=== PATIENT | female | born 1940 | race Hispanic/Latino ===

== ENCOUNTER 2017-03-14 12:40 | Emergency (ER) | payer MEDICARE ==
[~2017-03-14] VITALS: Ht 160 cm; Wt 54.4 kg
[~2017-03-14 12:40] MED LIST: COLACE100 MG PO; DIFLUCAN100 MG PO; HUMALOG MI100 UNIT/2 SQ; LEVOFLOXACIN250 MG PO; METFORMIN HCL500 MG PO; SIMVASTATIN20 MG PO; TYLENOL WITH C1 EACH PO; VASOTEC10 MG PO; ZOFRAN ODT4 MG SL
[2017-03-14 14:04] LABS: BILIRUBIN,URINE NEGATIVE (NEGATIVE); KETONES,URINE NEGATIVE (NEGATIVE); LEUKOCYTE ESTERASE ,URINE 2+ (NEGATIVE); URINE UROBILINOGEN 0.2 mg/dL (0.2 - 1)
[2017-03-14 14:08] LABS: NITRITE,URINE POSITIVE (NEGATIVE)
[2017-03-14 14:09] LABS: CLARITY,URINE SL CLOUDY (CLEAR); COLOR,URINE YELLOW (YELLOW); PROTEIN,URINE DIPSTICK TRACE (NEGATIVE)
[2017-03-14 14:30] LABS: BACTERIA,URINE MANY /HPF; EPITHELIAL CELLS,URINE FEW /LPF; RBC,URINE 0-5 /HPF (0-5)
--- NOTE | 2017-03-14 15:55 | Diagnostic Imaging Report ---
PROCEDURE: CT ABDOMEN AND PELVIS WITHOUT CONTRAST TECHNIQUE: The abdomen and pelvis were scanned utilizing a multidetector helical scanner from the diaphragm to the lesser. No IV contrast. Coronal and sagittal multiplanar reformations were obtained. COMPARISON: None. INDICATIONS: RIGHT FLANK PAIN FINDINGS: ABSENCE OF INTRAVENOUS CONTRAST DECREASES SENSITIVITY FOR DETECTION OF FOCAL LESIONS AND VASCULAR PATHOLOGY. LOWER THORAX: Subpleural scarring in the lateral left lower lobe and right lung base. HEPATOBILIARY: No focal hepatic lesions. There is stable prominence of the common bile duct which measures 7 mm. SPLEEN: No splenomegaly. PANCREAS: No focal masses or ductal dilatation. ADRENALS: No adrenal nodules. KIDNEYS/URETERS: There is a right nephroureteral stent with its proximal tip in the right renal pelvis and its distal tip in the bladder. There is moderate chronic right hydronephrosis which has decreased since the prior examination on 06/17/2014. No renal or ureteral stones. Within the limits of a noncontrast examination, no solid masses are identified. PELVIC ORGANS/BLADDER: Unremarkable. PERITONEUM / RETROPERITONEUM: No free air or fluid. LYMPH NODES: No lymphadenopathy. VESSELS: Severe atherosclerotic calcifications of the aorta and its branches. GI TRACT: No distention or wall thickening. A 3.6 cm diverticulum arising from the second or third portion of the duodenum is unchanged. BONES AND SOFT TISSUES: Multilevel degenerative changes of the thoracic and lumbar spine. Severe facet arthrosis of the lower lumbar spine. IMPRESSION: When compared to the prior examination on 06/17/2014, unchanged position of the right nephroureteral stent. There is right hydronephrosis which has decreased since the prior examination. No renal or ureteral stones on either side. Dictated by: Elmer Campoverde M.D. on 03/14/2017 at 16:04 Electronically approved by: Elmer Campoverde M.D. on 03/14/2017 at 16:04
== END 2017-03-14 18:31 | disposition left against medical advice (07) ==
LOC: ER 12:40
DX: R50.9 Fever, unspecified (principal); R10.9 Unspecified abdominal pain; I10 Essential (primary) hypertension; E11.9 Type 2 diabetes mellitus without complications; E78.5 Hyperlipidemia, unspecified
CPT/HCPCS: 74176; 81001; 87086; 87186; 99282

== ENCOUNTER 2017-03-17 09:05 | Inpatient (IN) | payer MEDICARE ==
[~2017-03-17] VITALS: Ht 160 cm; Wt 51.5 kg
[2017-03-17] MEDS ORDERED: SODIUM CHLORIDE 0.9% 1000ML 1,000 ML IV STA (09:18)
[2017-03-17] MEDS ORDERED: CEPHALEXIN500 MG PO (09:26)
[2017-03-17] MEDS ORDERED: ULTRAM50 MG PO (09:26)
[2017-03-17] MEDS ORDERED: GABAPENTIN100 MG PO (09:26)
[2017-03-17 10:39] LABS: BILIRUBIN,URINE NEGATIVE (NEGATIVE); KETONES,URINE NEGATIVE (NEGATIVE); LEUKOCYTE ESTERASE ,URINE 1+ (NEGATIVE); NITRITE,URINE NEGATIVE (NEGATIVE); PROTEIN,URINE DIPSTICK NEGATIVE (NEGATIVE); URINE UROBILINOGEN 0.2 mg/dL (0.2 - 1)
[2017-03-17 10:44] LABS: COLOR,URINE COLORLESS (YELLOW)
[2017-03-17 10:45] LABS: CLARITY,URINE HAZY (CLEAR)
[2017-03-17 10:53] LABS: BACTERIA,URINE FEW /HPF; EPITHELIAL CELLS,URINE FEW /LPF; TRANSITIONAL EPI CELLS,URINE RARE
[2017-03-17 11:16] LABS: BASOPHILS # (AUTO) 0.1 (0.0-0.1); BASOPHILS % 0.5 % (0.0-1.0); EOSINOPHILS % 0.4 % (0.0-6.0); HEMATOCRIT 37.2 % (34.2-44.1); LYMPHOCYTES % 19.8 % (18.0-39.1); MEAN CORPUSCULAR HEMOGLOBIN 31.5 pg (28-32); MEAN CORPUSCULAR HGB CONC 32.3 g/dL (31-35); MEAN CORPUSCULAR VOLUME 97.6 fL (81-99); MONOCYTES # (AUTO) 0.4 (0.2-0.8); MONOCYTES % 4.3 % (4.4-11.3); NEUTROPHILS # (AUTO) 7.6 (2.1-6.9); NEUTROPHILS % 74.6 % (38.7-80.0); PLATELET COUNT 188 x10e3/uL (140-360); RED BLOOD COUNT 3.81 x10e6/uL (3.6-5.1); RED CELL DISTRIBUTION WIDTH 13.4 % (11.7-14.4)
[2017-03-17 11:30] LABS: ALANINE AMINOTRANSFERASE 11 IU/L (0-55); ALBUMIN 3.4 g/dL (3.5-5.0); ALBUMIN/GLOBULIN RATIO 0.9 (0.8-2.0); ALKALINE PHOSPHATASE 59 IU/L (40-150); ANION GAP 9.9 mmol/L (8-16); BLOOD UREA NITROGEN 15 mg/dL (7-26); BUN/CREATININE RATIO 22 (6-25); CALCIUM 9.2 mg/dL (8.4-10.2); CARBON DIOXIDE 25 mmol/L (22-29); CHLORIDE 106 mmol/L (98-107); CREATININE, SERUM 0.68 mg/dL (0.57-1.11); EST GLOMERULAR FILTRATION RATE > 60 ML/MIN (60-); GLUCOSE 164 mg/dL (74-118); LIPASE 237 U/L (8-78); POTASSIUM 3.9 mmol/L (3.5-5.1); SODIUM 137 mmol/L (136-145)
[2017-03-17] MEDS ORDERED: MEROPENEM 1GM 100 ML IV SCH (11:45)
[2017-03-17] MEDS ORDERED: ONDANSETRON HCL INJ 2 MG/ML VIAL IV PRN (11:45)
[2017-03-17] MEDS ORDERED: DEXTROSE 50% SYRINGE 50 ML IV PRN (11:45)
[2017-03-17] MEDS ORDERED: MORPHINE SULFATE 2 MG/ML SYR IV PRN (11:45)
[2017-03-17] MEDS ORDERED: SODIUM CHLORIDE FLUSH 10 ML SYR INJ PRN (11:45)
[2017-03-17] MEDS ORDERED: MORPHINE SULFATE 4 MG/ML SYR IV PRN (12:00)
[2017-03-17] MEDS ORDERED: MEROPENEM 1 GM VIAL IV SCH (12:00)
[2017-03-17] MEDS ORDERED: SODIUM CHLORIDE 0.9% 1000ML 1,000 ML ONE (12:50)
[2017-03-17] MEDS ORDERED: SODIUM CHLORIDE 0.9% 50ML 50 ML ONE (12:50)
[2017-03-17] MEDS: MEROPENEM 1 GM VIAL IV SCH ×2 (12:56→20:34)
[2017-03-17] MEDS ORDERED: ACETAMINOPHEN/CODEINE 300MG - 30MG TAB PO PRN (17:45)
[2017-03-17] MEDS: INSULIN REGULAR, HUMAN 100 UNIT/1 ML 3ML VIAL SQ SCH ×2 (18:41→21:47)
[2017-03-17] MEDS ORDERED: HYDRALAZINE HCL 20 MG/ML VIAL IV PRN (19:15)
[2017-03-17 20:24] VITALS: BP 147/65
--- NOTE | 2017-03-17 20:53 | History and Physical ---
PRIMARY CARE PROVIDER: Dr. Kevin Mcguire CHIEF COMPLAINT: Multidrug resistant UTI. HISTORY OF PRESENT ILLNESS: Ms. Patel is a 77-year-old lady with history of ureteral calculi and a ureteral stent that gets replaced every 2 to 3 months. She has been battling a urinary tract infection for the last 2 months on oral antibiotics as an outpatient. She has been failing therapy. Recent culture, according to infectious disease, showed multidrug resistant ESBL E. coli. Patient was admitted electively for IV Merrem. REVIEW OF SYSTEMS: She denies fever, chills or weight loss. She denies sinus congestion or sore throat. Denies chest pain or palpitations. She denies shortness of breath, wheezing or cough. She denies abdominal pain, nausea, vomiting or melena. She denies dysuria or flank pain. Denies rash or pruritus. She denies joint pain or swelling. She denies bleeding or bruising. She denies headache, vertigo or loss of consciousness. She denies depression, agitation, homicidal or suicidal ideation. PAST MEDICAL HISTORY: Significant for longstanding hypertension, type 2 diabetes, dementia, peripheral arterial disease and ureteral calculi. REGULAR MEDICATIONS: She has been on Keflex here recently and she takes tramadol as needed for pain. She is on insulin, Humalog 70/30 mix, 20 units at noon, 16 units at dinner time. She is on metformin 500 mg twice daily. Simvastatin 20 mg at bedtime. Gabapentin 100 mg at bedtime. Enalapril 10 mg daily. Colace 100 mg twice daily and Tylenol with codeine as needed for pain. PAST SURGICAL HISTORY: She has a history of hysterectomy, has had 2 bladder slings. She has had a cholecystectomy and she has had a ureteral stent and lithotripsy for kidney stones. ALLERGIES: NO KNOWN DRUG ALLERGIES. FAMILY HISTORY: Significant for hypertension and diabetes. SOCIAL HISTORY: The patient lives at home with her daughter who takes care of her. Due to her dementia, she requires quite a bit of supervision and assistance with activities of daily living. PHYSICAL EXAM: PSYCHIATRIC: Awake and alert, oriented to herself, a little bit confused. She has a normal body habitus. Is in no acute distress. She is a little cachectic. Her BMI is 21.25. VITAL SIGNS: Blood pressure 147/63. Pulse 62 and regular. Respiratory rate 16. O2 sat 96% on room air. Temperature 97.9. HEENT: Head is atraumatic. Eyes are anicteric with clear conjunctivae. Ears and nares are without erythema or discharge. Oropharynx is clear. NECK: Is supple with no mass or thyromegaly. LYMPHATIC SYSTEM: She has no cervical, axillary or inguinal adenopathy. CARDIOVASCULAR: Heart has a regular rate and rhythm without murmur or extra heart sounds. She has no carotid bruits. No peripheral edema. She has very weak dorsal pedal pulses. RESPIRATORY: Lungs are clear to auscultation and percussion with normal respiratory effort. GASTROINTESTINAL: Abdomen is soft without organomegaly, masses or tenderness. Normal bowel sounds present. CUTANEOUS: Her skin is warm and dry to touch with no rash or skin breakdown. MUSCULOSKELETAL: Her joints are in normal alignment without erythema or swelling. Has no calf tenderness. NEUROLOGIC: Exam is nonfocal with intact cranial nerves and no motor or sensory deficits. DIAGNOSTIC STUDIES: Her UA shows 11 to 20 red cells and 11 to 20 white cells. Her CBC shows a white count of 10.1 with 75% neutrophils and 20% lymphocytes. Hemoglobin 12.0, hematocrit 37.2 and platelet count of 188,000. Chemistry shows normal electrolytes. CO2 25. Creatinine 0.68. BUN 15 for a normal GFR. Glucose is 164. Calcium is 9.2. Transaminases, bilirubin and alkaline phos are normal and her lipase is slightly elevated at 237. IMPRESSION AND PLAN 1. Multi drug resistant urinary tract infection. The patient has been started on IV meropenem empirically. We are waiting on the urine culture. ID has been consulted. 2. Ureteral stent, may need to be replaced. Will consult urology who has been following the patient as an outpatient to address the stent. 3. Hypertension. Will continue her enalapril and p.r.n. IV hydralazine. 4. Type 2 diabetes. Will continue the metformin. Will add Januvia and sliding scale insulin. 5. Dementia. Will continue supportive care. 6. For prophylaxis, the patient will be on Pepcid for GI prophylaxis and Lovenox for DVT prophylaxis. Job#: [id number]
--- NOTE | 2017-03-17 21:20 | Consultation ---
DATE OF CONSULTATION: March 17, 2017 REASON FOR CONSULTATION: UTI. HISTORY OF PRESENT ILLNESS: This patient is a 77-year-old female who has history of recurrent UTIs, having urgency frequency. Urine culture was done recently and since she had multidrug resistant, patient took a few courses of oral antibiotic but failed. The patient finally came to the emergency room where she was admitted. The patient was seen in the emergency room. She is currently doing well. She has no complaints. PAST MEDICAL HISTORY: Hypertension, diabetes and UTI before. PAST SURGICAL HISTORY: Colpopexy. SOCIAL HISTORY: There is no smoking, drug abuse or alcohol abuse. FAMILY HISTORY: Otherwise unremarkable. REVIEW OF SYSTEMS: HEENT: Negative. There is no headache, visual changes or hearing changes. GI: No nausea, no vomiting and no diarrhea. CARDIAC: There is no arrhythmia. PSYCHIATRIC: No seizure activity. SKIN: No rash. PHYSICAL EXAMINATION: GENERAL: She is currently alert, oriented and does not seem to be in acute distress. VITALS: Stable, currently afebrile. HEENT: Not icteric. NECK: Supple. CHEST: Clear. COR: No murmur. ABDOMEN: Soft. Bowel sounds present. EXTREMITIES: No edema. SKIN: No rash. IMPRESSION: Urgency and frequency in a patient who probably has cystitis, multi-drug resistant. Will put her on meropenem 500 IV q.8, will plan on 3 days. Recheck CBC. Recheck chem panel. Recheck her urine cultures. Will follow with you. Job#: [id number]
[2017-03-17] MEDS: ENOXAPARIN SOD INJ 40 MG/0.4 ML SYR SC SCH (21:28)
[2017-03-17] MEDS: GABAPENTIN 100 MG CAP PO SCH (21:28)
[2017-03-17] MEDS: SIMVASTATIN 20 MG TAB PO SCH (21:28)
[2017-03-18 01:23] VITALS: BP 147/65
[2017-03-18 05:49] VITALS: BP 147/65
[2017-03-18 06:17] LABS: BASOPHILS % 0.6 % (0.0-1.0); EOSINOPHILS # (AUTO) 0.1 (0.0-0.4); HEMATOCRIT 36.1 % (34.2-44.1); HEMOGLOBIN 11.7 g/dL (12.0-16.0); LYMPHOCYTES # (AUTO) 2.4 (1.0-3.2); LYMPHOCYTES % 35.4 % (18.0-39.1); MEAN CORPUSCULAR HEMOGLOBIN 31.5 pg (28-32); MEAN CORPUSCULAR HGB CONC 32.4 g/dL (31-35); MONOCYTES # (AUTO) 0.6 (0.2-0.8); MONOCYTES % 8.1 % (4.4-11.3); NEUTROPHILS # (AUTO) 3.7 (2.1-6.9); NEUTROPHILS % 53.6 % (38.7-80.0); PLATELET COUNT 177 x10e3/uL (140-360); RED BLOOD COUNT 3.72 x10e6/uL (3.6-5.1); RED CELL DISTRIBUTION WIDTH 13.3 % (11.7-14.4)
[2017-03-18 06:37] LABS: ANION GAP 10.8 mmol/L (8-16); BLOOD UREA NITROGEN 17 mg/dL (7-26); BUN/CREATININE RATIO 26 (6-25); CALCIUM 8.5 mg/dL (8.4-10.2); CARBON DIOXIDE 24 mmol/L (22-29); CHLORIDE 108 mmol/L (98-107); CREATININE, SERUM 0.66 mg/dL (0.57-1.11); EST GLOMERULAR FILTRATION RATE > 60 ML/MIN (60-); GLUCOSE 158 mg/dL (74-118); POTASSIUM 3.8 mmol/L (3.5-5.1); SODIUM 139 mmol/L (136-145)
[2017-03-18 06:59] LABS: THYROID STIMULATING HORMONE 2.692 uIU/mL (0.350-4.940)
[2017-03-18 08:00] VITALS: BP 118/58
[2017-03-18] MEDS: INSULIN REGULAR, HUMAN 100 UNIT/1 ML 3ML VIAL SQ SCH ×4 (08:00→20:33)
[2017-03-18] MEDS: FAMOTIDINE 20 MG TAB PO SCH ×2 (08:30→17:06)
[2017-03-18] MEDS: METFORMIN HCL 500 MG TAB PO SCH ×2 (09:00→17:06)
[2017-03-18] MEDS: DOCUSATE SODIUM 100 MG CAP PO SCH ×2 (09:24→17:06)
[2017-03-18] MEDS: SITAGLIPTIN 100 MG TAB PO SCH (09:24)
[2017-03-18] MEDS: ENALAPRIL MALEATE 10 MG TAB PO SCH (09:24)
[2017-03-18 12:00] VITALS: BP 148/67
[2017-03-18] MEDS: MEROPENEM 1 GM VIAL IV SCH (12:17)
[2017-03-18 16:00] VITALS: BP 113/56
[2017-03-18] MEDS: ENOXAPARIN SOD INJ 40 MG/0.4 ML SYR SC SCH (17:06)
[2017-03-18 20:00] VITALS: BP_SYST 118; BP_SYST 121; BP_DIAS 56; BP_DIAS 58
[2017-03-18] MEDS: SIMVASTATIN 20 MG TAB PO SCH (21:00)
[2017-03-18] MEDS: GABAPENTIN 100 MG CAP PO SCH (21:00)
[2017-03-19] VITALS (8 sets, daily range): BP systolic 104–143; BP diastolic 54–64
[2017-03-19 06:21] LABS: BASOPHILS % 0.6 % (0.0-1.0); EOSINOPHILS # (AUTO) 0.1 (0.0-0.4); EOSINOPHILS % 1.9 % (0.0-6.0); HEMOGLOBIN 12.4 g/dL (12.0-16.0); LYMPHOCYTES # (AUTO) 2.3 (1.0-3.2); LYMPHOCYTES % 33.6 % (18.0-39.1); MEAN CORPUSCULAR HEMOGLOBIN 31.6 pg (28-32); MEAN CORPUSCULAR HGB CONC 32.6 g/dL (31-35); MEAN CORPUSCULAR VOLUME 96.9 fL (81-99); MONOCYTES # (AUTO) 0.5 (0.2-0.8); NEUTROPHILS # (AUTO) 3.9 (2.1-6.9); NEUTROPHILS % 56.6 % (38.7-80.0); PLATELET COUNT 192 x10e3/uL (140-360); RED BLOOD COUNT 3.92 x10e6/uL (3.6-5.1); RED CELL DISTRIBUTION WIDTH 13.5 % (11.7-14.4)
[2017-03-19 06:51] LABS: BLOOD UREA NITROGEN 22 mg/dL (7-26); BUN/CREATININE RATIO 30 (6-25); CALCIUM 8.7 mg/dL (8.4-10.2); CARBON DIOXIDE 24 mmol/L (22-29); CHLORIDE 108 mmol/L (98-107); CREATININE, SERUM 0.74 mg/dL (0.57-1.11); EST GLOMERULAR FILTRATION RATE > 60 ML/MIN (60-); GLUCOSE 162 mg/dL (74-118); SODIUM 141 mmol/L (136-145)
[2017-03-19] MEDS: FAMOTIDINE 20 MG TAB PO SCH ×2 (08:49→16:47)
[2017-03-19] MEDS: DOCUSATE SODIUM 100 MG CAP PO SCH ×2 (08:49→16:47)
[2017-03-19] MEDS: METFORMIN HCL 500 MG TAB PO SCH ×2 (08:49→16:47)
[2017-03-19] MEDS: SITAGLIPTIN 100 MG TAB PO SCH (08:49)
[2017-03-19] MEDS: ENALAPRIL MALEATE 10 MG TAB PO SCH (08:50)
[2017-03-19] MEDS: INSULIN REGULAR, HUMAN 100 UNIT/1 ML 3ML VIAL SQ SCH ×4 (08:53→21:34)
[2017-03-19] MEDS: MEROPENEM 1 GM VIAL IV SCH ×3 (12:23→23:03)
[2017-03-19] MEDS: ENOXAPARIN SOD INJ 40 MG/0.4 ML SYR SC SCH (16:47)
[2017-03-19] MEDS: SIMVASTATIN 20 MG TAB PO SCH (20:40)
[2017-03-19] MEDS: GABAPENTIN 100 MG CAP PO SCH (20:40)
[2017-03-20] VITALS (8 sets, daily range): BP systolic 119–159; BP diastolic 54–69
[2017-03-20 06:19] LABS: BASOPHILS % 0.5 % (0.0-1.0); EOSINOPHILS # (AUTO) 0.1 (0.0-0.4); EOSINOPHILS % 1.3 % (0.0-6.0); HEMATOCRIT 38.1 % (34.2-44.1); HEMOGLOBIN 12.6 g/dL (12.0-16.0); LYMPHOCYTES # (AUTO) 2.7 (1.0-3.2); MEAN CORPUSCULAR HEMOGLOBIN 31.7 pg (28-32); MEAN CORPUSCULAR HGB CONC 33.1 g/dL (31-35); MEAN CORPUSCULAR VOLUME 95.7 fL (81-99); MONOCYTES # (AUTO) 0.6 (0.2-0.8); MONOCYTES % 6.6 % (4.4-11.3); NEUTROPHILS # (AUTO) 5.3 (2.1-6.9); NEUTROPHILS % 60.3 % (38.7-80.0); PLATELET COUNT 178 x10e3/uL (140-360); RED BLOOD COUNT 3.98 x10e6/uL (3.6-5.1); RED CELL DISTRIBUTION WIDTH 13.3 % (11.7-14.4)
[2017-03-20 06:37] LABS: ANION GAP 13.1 mmol/L (8-16); BLOOD UREA NITROGEN 21 mg/dL (7-26); BUN/CREATININE RATIO 31 (6-25); CALCIUM 8.9 mg/dL (8.4-10.2); CARBON DIOXIDE 22 mmol/L (22-29); CHLORIDE 109 mmol/L (98-107); CREATININE, SERUM 0.67 mg/dL (0.57-1.11); EST GLOMERULAR FILTRATION RATE > 60 ML/MIN (60-); GLUCOSE 176 mg/dL (74-118); POTASSIUM 4.1 mmol/L (3.5-5.1); SODIUM 140 mmol/L (136-145)
[2017-03-20] MEDS: INSULIN REGULAR, HUMAN 100 UNIT/1 ML 3ML VIAL SQ SCH ×4 (07:30→20:50)
[2017-03-20] MEDS: SITAGLIPTIN 100 MG TAB PO SCH (09:06)
[2017-03-20] MEDS: DOCUSATE SODIUM 100 MG CAP PO SCH ×2 (09:06→17:00)
[2017-03-20] MEDS: FAMOTIDINE 20 MG TAB PO SCH ×2 (09:06→17:00)
[2017-03-20] MEDS: ENALAPRIL MALEATE 10 MG TAB PO SCH (09:06)
[2017-03-20] MEDS: METFORMIN HCL 500 MG TAB PO SCH ×2 (09:06→17:00)
[2017-03-20] MEDS: MEROPENEM 1 GM VIAL IV SCH ×2 (12:57→23:12)
[2017-03-20] MEDS: ENOXAPARIN SOD INJ 40 MG/0.4 ML SYR SC SCH (17:00)
--- NOTE | 2017-03-20 19:19 | Diagnostic Imaging Report ---
PROCEDURE: A single AP view of the chest. COMPARISON: None. INDICATIONS: PICC LINE PLACEMENT FINDINGS: Lines/tubes: Right PICC tip overlies the lower SVC. Lungs: The lungs are well inflated and clear. There is no evidence of pneumonia or pulmonary edema. Pleura: There is no pleural effusion or pneumothorax. Heart and mediastinum: The heart and the mediastinum are unremarkable. Bones: No acute bony abnormality. IMPRESSION: Right PICC tip overlies the lower SVC. Dictated by: Ez Garrido M.D. on 03/20/2017 at 19:28 Electronically approved by: Ez Garrido M.D. on 03/20/2017 at 19:28
[2017-03-20] MEDS: SIMVASTATIN 20 MG TAB PO SCH (21:01)
[2017-03-20] MEDS: GABAPENTIN 100 MG CAP PO SCH (21:01)
[2017-03-21] VITALS: BP 139/60
[2017-03-21 04:00] VITALS: BP 126/56
[2017-03-21 04:04] LABS: BASOPHILS # (AUTO) 0.1 (0.0-0.1); BASOPHILS % 0.6 % (0.0-1.0); EOSINOPHILS # (AUTO) 0.1 (0.0-0.4); EOSINOPHILS % 1.5 % (0.0-6.0); HEMOGLOBIN 12.6 g/dL (12.0-16.0); LYMPHOCYTES # (AUTO) 2.2 (1.0-3.2); LYMPHOCYTES % 24.9 % (18.0-39.1); MEAN CORPUSCULAR HEMOGLOBIN 31.8 pg (28-32); MEAN CORPUSCULAR HGB CONC 33.2 g/dL (31-35); MONOCYTES # (AUTO) 0.6 (0.2-0.8); MONOCYTES % 6.4 % (4.4-11.3); NEUTROPHILS # (AUTO) 5.9 (2.1-6.9); NEUTROPHILS % 66.3 % (38.7-80.0); PLATELET COUNT 175 x10e3/uL (140-360); RED BLOOD COUNT 3.96 x10e6/uL (3.6-5.1); RED CELL DISTRIBUTION WIDTH 13.4 % (11.7-14.4)
[2017-03-21 04:19] LABS: ANION GAP 11.9 mmol/L (8-16); BLOOD UREA NITROGEN 19 mg/dL (7-26); BUN/CREATININE RATIO 29 (6-25); CALCIUM 9.1 mg/dL (8.4-10.2); CARBON DIOXIDE 24 mmol/L (22-29); CHLORIDE 106 mmol/L (98-107); CREATININE, SERUM 0.66 mg/dL (0.57-1.11); EST GLOMERULAR FILTRATION RATE > 60 ML/MIN (60-); GLUCOSE 161 mg/dL (74-118); POTASSIUM 3.9 mmol/L (3.5-5.1); SODIUM 138 mmol/L (136-145)
[2017-03-21] MEDS: INSULIN REGULAR, HUMAN 100 UNIT/1 ML 3ML VIAL SQ SCH ×2 (07:30→11:30)
[2017-03-21] MEDS ORDERED: BELLADONNA/OPIUM 60 MG SUPP PR ONE (10:25)
[2017-03-21] MEDS ORDERED: IOPAMIDOL 610MG/1ML 300 MG/ML VIAL IV ONE (10:25)
[2017-03-21 10:33] VITALS: BP 126/56
[2017-03-21] MEDS ORDERED: MACROBID 100 M100 MG PO (11:40)
[2017-03-21 12:30] VITALS: BP 130/58
[2017-03-21] MEDS: SITAGLIPTIN 100 MG TAB PO SCH (12:31)
[2017-03-21] MEDS: METFORMIN HCL 500 MG TAB PO SCH (12:31)
[2017-03-21] MEDS: DOCUSATE SODIUM 100 MG CAP PO SCH (12:31)
[2017-03-21] MEDS: ENALAPRIL MALEATE 10 MG TAB PO SCH (12:31)
[2017-03-21] MEDS: FAMOTIDINE 20 MG TAB PO SCH (12:31)
[2017-03-21] MEDS ORDERED: ERTAPENEM 1GM/NS 100ML 100 ML IV SCH (13:00)
[2017-03-21] MEDS ORDERED: PROPOFOL IV EMULSION 10 MG/ML 20 ML VIAL ONE (18:16)
[2017-03-21] MEDS ORDERED: LIDOCAINE HCL 2% LOCAL INJ 5 ML SDV VIAL INJ ONE (18:16)
[2017-03-21] MEDS ORDERED: SEVOFLURANE INHAL SOLN 250 ML PEN BTL ONE (18:16)
[2017-03-21] MEDS ORDERED: FENTANYL CITRATE/PF 100MCG/2 ML INJ ONE (18:27)
--- NOTE | 2017-03-22 18:37 | Discharge Summary ---
ADMISSION DIAGNOSES 1. Multidrug-resistant urinary tract infection. 2. Ureteral stent. 3. Hypertension. 4. Type 2 diabetes. 5. Dementia. DISCHARGE DIAGNOSES 1. Multidrug-resistant urinary tract infection. 2. Ureteral stent. 3. Hypertension. 4. Type 2 diabetes. 5. Dementia. HISTORY: Patient has a history of hypertension, type 2 diabetes, PAD, ureteral calculi and dementia. HOSPITAL COURSE: A 77-year-old female presented with calculi and ureteral stents were placed every 2-3 months. She has been battling UTIs for the past 2 months, on oral antibiotics outpatient, following Dr. Middleton. She has been failing therapy. Current culture per ID showed ESBL E. coli. Patient admitted for IV Merrem. Culture done in the hospital also showed E. coli ESBL. Plan was to discharge with 10 days of IV Merrem, but patient refuses to go to longterm facility and Dr. Middleton is unable to setup with his office. Per ID, patient can discharge home on Macrobid for 10 days. The stent was replaced per urology on date of discharge, no complications and urology okay to discharge patient home. Diabetes and hypertension controlled on home medications. Only new antibiotic was Macrobid per ID, no other medications. Patient will follow up with ID in 1-2 weeks and urology as needed. Patient will discharge home with family. Dictated by: Maria Alejandra Jefferson NP YANE WILLIAMSON MD Job#: [id number] [id number]
== END 2017-03-21 13:30 | disposition home or self-care (01) | DRG 690 ==
LOC: ER 09:05 → ERHOLD 11:55 → MED/SURG2 23:16
PROVIDERS: ADMIT Internal Medicine; ATTEND Internal Medicine
PROC: 02HV33Z Insertion of Infusion Device into Superior Vena Cava, Percutaneous Approach (ICD-10-PCS; 2017-03-20)
PROC: BT1D1ZZ Fluoroscopy of Right Kidney, Ureter and Bladder using Low Osmolar Contrast (ICD-10-PCS; 2017-03-21)
PROC: 0T764DZ Dilation of Right Ureter with Intraluminal Device, Percutaneous Endoscopic Approach (ICD-10-PCS; principal; 2017-03-21 10:30)
DX: N13.6 Pyonephrosis (principal); F03.90 Unspecified dementia, unspecified severity, without behavioral disturbance, psychotic disturbance, mood disturbance, and anxiety; E11.9 Type 2 diabetes mellitus without complications; I73.9 Peripheral vascular disease, unspecified; B96.20 Unspecified Escherichia coli [E. coli] as the cause of diseases classified elsewhere; N39.41 Urge incontinence; Z16.24 Resistance to multiple antibiotics; Z16.12 Extended spectrum beta lactamase (ESBL) resistance; N81.10 Cystocele, unspecified; N95.2 Postmenopausal atrophic vaginitis
CPT/HCPCS: 36415; 36569; 71045; 74420; 80048; 80053; 81001; 82948; 83690; 83880; 84443; 85025; 87040; 87086; 87186; 96372; 99284; C2617; J1650; J2001; J2185; J7030

== ENCOUNTER → 2017-04-25 | Outpatient (CLI) | payer MEDICARE ==
[~2017-04-25] MED LIST changes: +CEPHALEXIN500 MG PO; +GABAPENTIN100 MG PO; +MACROBID 100 M100 MG PO; +ULTRAM50 MG PO
--- NOTE | 2017-04-25 09:39 | Diagnostic Imaging Report ---
PROCEDURE: CT ABDOMEN AND PELVIS WITHOUT CONTRAST TECHNIQUE: The abdomen and pelvis were scanned utilizing a multidetector helical scanner from the diaphragm to the lesser trochanter. No oral or intravenous contrast was administered per renal stone protocol. Coronal and sagittal multiplanar reformations were obtained. COMPARISON: None. INDICATIONS: CALCULUS OF THE KIDNEY FINDINGS: ABSENCE OF INTRAVENOUS CONTRAST DECREASES SENSITIVITY FOR DETECTION OF FOCAL LESIONS AND VASCULAR PATHOLOGY. LOWER THORAX: Unchanged focal scar laterally within the left lower lobe and posteriorly within the right lower lobe.. HEPATOBILIARY: No focal hepatic lesions. No biliary ductal dilatation. SPLEEN: No splenomegaly. PANCREAS: No focal masses or ductal dilatation. ADRENALS: No adrenal nodules. KIDNEYS/URETERS: Right internal ureteral stent is unchanged in position. 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 No renal, ureteral, or bladder calculi. PELVIC ORGANS/BLADDER: The uterus is not identified and has presumably been removed. No adnexal mass. Urinary bladder is unremarkable.. PERITONEUM / RETROPERITONEUM: No free air or fluid. LYMPH NODES: No pelvic sidewall, retroperitoneal, or mesenteric lymphadenopathy. VESSELS: Atherosclerotic calcification of the abdominal aorta and major branch vessels without aneurysmal dilatation. Evaluation is otherwise limited in the absence of intravenous contrast. GI TRACT: Large bowel shows no evidence of distention or wall thickening. Normal appendix. There is no small bowel dilatation to suggest obstruction. BONES AND SOFT TISSUES: Postsurgical changes of the anterior abdominal wall. Otherwise no focal soft tissue abnormalities. No osseous destructive lesions. Multilevel degenerative disc changes and degenerative facet arthropathy of the lumbar spine. IMPRESSION: Appropriately positioned right internal ureteral stent with stable chronic right hydronephrosis. No renal, ureteral, or bladder calculi. Atherosclerotic vascular disease. Dictated by: Skyler Keller M.D. on 04/25/2017 at 9:39 Electronically approved by: Skyler Keller M.D. on 04/25/2017 at 9:39
== END ==
LOC: CT 09:01
PROVIDERS: ATTEND Urology
DX: N20.0 Calculus of kidney (principal)
CPT/HCPCS: 74176

== ENCOUNTER 2017-06-24 21:41 | Inpatient (IN) | payer MEDICARE ==
[~2017-06-24] VITALS: Ht 152.4 cm; Wt 53.5 kg
--- OUTSIDE RECORDS SUMMARY | 2017-06-24 21:44 | XMS REPORT ---
Author Author [facility] Address Unknown Phone Unavailable Care Team Providers Care Arc Trimmer Name Role Phone ISAURO SHEPPARD Unavailable Unavailable YANE WILLIAMSON Unavailable Unavailable NATALY MIRANDA Unavailable Unavailable Problems This patient has no known problems. Allergies, Adverse Reactions, Alerts This patient has no known allergies or adverse reactions. Medications This patient has no known medications. Results Test Description Test Time Test Comments Text Results Atomic Results Result Comments CT ABDOMEN/PELVIS WO [place] [address] Patient Name: YOSI CASIANO MR #: [id number] : 1940 Age/Sex: 77/F Req #: [id number] Adm Physician: Ordered by: ISAURO SHEPPARD MD Report #: [id number] Location: CT Room/Bed: Procedure: [id number] CT/CT ABDOMEN/PELVIS WO Exam Date: 04/25/17 Exam Time: 0900 REPORT STATUS: Signed PROCEDURE: CT ABDOMEN AND PELVIS WITHOUT CONTRAST TECHNIQUE: The abdomen and pelvis were scanned utilizing a multidetector helical scanner from the diaphragm to the lesser trochanter. No oral or intravenous contrast was administered per renal stone protocol. Coronal and sagittal multiplanar reformations were obtained. COMPARISON: None. INDICATIONS: CALCULUS OF THE KIDNEY FINDINGS: ABSENCE OF INTRAVENOUS CONTRAST DECREASES SENSITIVITY FOR DETECTION OF FOCAL LESIONS AND VASCULAR PATHOLOGY. LOWER THORAX: Unchanged focal scar laterally within the left lower lobe and posteriorly within the right lower lobe.. HEPATOBILIARY: No focal hepatic lesions. No biliary ductal dilatation. SPLEEN: No splenomegaly. PANCREAS: No focal masses or ductal dilatation. ADRENALS: No adrenal nodules. KIDNEYS/URETERS: Right internal ureteral stent is unchanged in position. 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 No renal, ureteral, or bladder calculi. PELVIC ORGANS/BLADDER: The uterus is not identified and has presumably been removed. No adnexal mass. Urinary bladder is unremarkable.. PERITONEUM / RETROPERITONEUM: No free air or fluid. LYMPH NODES: No pelvic sidewall, retroperitoneal, or mesenteric lymphadenopathy. VESSELS: Atherosclerotic calcification of the abdominal aorta and major branch vessels without aneurysmal dilatation. Evaluation is otherwise limited in the absence of intravenous contrast. GI TRACT: Large bowel shows no evidence of distention or wall thickening. Normal appendix. There is no small bowel dilatation to suggest obstruction. BONES AND SOFT TISSUES: Postsurgical changes of the anterior abdominal wall. Otherwise no focal soft tissue abnormalities. No osseous destructive lesions. Multilevel degenerative disc changes and degenerative facet arthropathy of the lumbar spine. IMPRESSION: Appropriately positioned right internal ureteral stent with stable chronic right hydronephrosis. No renal, ureteral, or bladder calculi. Atherosclerotic vascular disease. Dictated by: Priscilla Dillard M.D. on 04/25/2017 at 9:39 Electronically approved by: Priscilla Dillard M.D. on 04/25/2017 at 9:39 Dictated By: PRISCILLA DILLARD MD 8 Transcribed By: BERTO on 04/25/17938 COPY TO: ISAURO SHEPPARD MD CHEST XRAY LINE PLACEMENT [place] [address] Patient Name: YOSI CASIANO MR #: [id number] : 1940 Age/Sex: 77/F Req #: [id number] Adm Physician: YANE WILLIAMSON MD Ordered by: YANE WILLIAMSON MD Report #: [id number] Location: MED/SURG2 Room/Bed: [facility] Procedure: [id number] DX/CHEST XRAY LINE PLACEMENT Exam Date: 03/20/17 Exam Time: 1842 REPORT STATUS: Signed PROCEDURE: A single AP view of the chest. COMPARISON: None. INDICATIONS: PICC LINE PLACEMENT FINDINGS: Lines/ tubes: Right PICC tip overlies the lower SVC. Lungs: The lungs are well inflated and clear. There is no evidence of pneumonia or pulmonary edema. Pleura: There is no pleural effusion or pneumothorax. Heart and mediastinum: The heart and the mediastinum are unremarkable. Bones: No acute bony abnormality. IMPRESSION: Right PICC tip overlies the lower SVC. Dictated by: Ez Sweet M.D. on 03/20/2017 at 19:28 Electronically approved by: Ez Sweet M.D. on 03/20/2017 at 19:28 Dictated By: EZ SWEET MD 27 Transcribed By: BERTO on 03/20/171927 COPY TO: YANE WILLIAMSON MD CT ABDOMEN/PELVIS [place] [address] Patient Name: YOSI CASIANO MR #: [id number] : 1940 Age/Sex: 77/F Req #: [id number] Adm Physician: Ordered by: NATALY MIRANDA MD Report #: [id number] Location: ER Room/Bed: Procedure: [id number] CT/CT ABDOMEN/PELVIS WO Exam Date: 03/14/17 Exam Time: 1450 REPORT STATUS: Signed PROCEDURE: CT ABDOMEN AND PELVIS WITHOUT CONTRAST TECHNIQUE: The abdomen and pelvis were scanned utilizing a multidetector helical scanner from the diaphragm to the lesser. No IV contrast. Coronal and sagittal multiplanar reformations were obtained. COMPARISON: None. INDICATIONS: RIGHT FLANK PAIN FINDINGS : ABSENCE OF INTRAVENOUS CONTRAST DECREASES SENSITIVITY FOR DETECTION OF FOCAL LESIONS AND VASCULAR PATHOLOGY. LOWER THORAX: Subpleural scarring in the lateral left lower lobe and right lung base. HEPATOBILIARY: No focal hepatic lesions. There is stable prominence of the common bile duct which measures 7 mm. SPLEEN: No splenomegaly. PANCREAS: No focal masses or ductal dilatation. ADRENALS: No adrenal nodules. KIDNEYS/URETERS: There is a right nephroureteral stent with its proximal tip in the right renal pelvis and its distal tip in the bladder. There is moderate chronic right hydronephrosis which has decreased since the prior examination on 06/17/2014. No renal or ureteral stones. Within the limits of a noncontrast examination, no solid masses are identified. PELVIC ORGANS/BLADDER: Unremarkable. PERITONEUM / RETROPERITONEUM: No free air or fluid. LYMPH NODES: No lymphadenopathy. VESSELS: Severe atherosclerotic calcifications of the aorta and its branches. GI TRACT: No distention or wall thickening. A 3.6 cm diverticulum arising from the second or third portion of the duodenum is unchanged. BONES AND SOFT TISSUES: Multilevel degenerative changes of the thoracic and lumbar spine. Severe facet arthrosis of the lower lumbar spine. IMPRESSION: When compared to the prior examination on 06/17/2014, unchanged position of the right nephroureteral stent. There is right hydronephrosis which has decreased since the prior examination. No renal or ureteral stones on either side. Dictated by: Ayla Campoverde M.D. on 03/14/2017 at 16:04 Electronically approved by: Ayla Campoverde M.D. on at 16:04 Dictated By: AYLA CAMPOVERDE MD [id number] Transcribed By: BERTO on 03/14/17 1604 COPY TO: NATALY MIRANDA MD
--- OUTSIDE RECORDS SUMMARY | 2017-06-24 21:44 | XMS REPORT | Continuity of Care Document ---
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 Yes 03/18/17 1:17am If yes, is advance directive on file with [facility]? Yes 03/18/17 1:17am If not on file with [facility] will patient provide a copy? Yes 03/18/17 1:17am Do you have a Directive to Physician? No 03/17/17 10:57am Do you have a Medical Power of Celebrity Chef [employer]ur [employer] Personality? No 03/17/17 10:57am Do you have an out of hospital Do Not Resuscitate Order? No 03/17/17 10:57am Do you have any special needs we should be aware of? No 03/17/17 10:57am Do you have a support person here with you today? Yes 03/17/17 10:57am Did patient receive Notice of Privacy Practices? Yes 03/17/17 10:57am Did patient receive patient rights and responsibilities? Yes 03/17/17 10:57am Problems Medical Problem Onset Date Status Abdominal pain 06/17/2014 Acute Cystitis Unknown Pelvic abscess 06/17/2014 Acute Medications Current Home Medications Medication Dose Units Route Directions Days Qty Instructions Start Date Acetaminophen With Codeine (Tylenol With Codeine #3 Tablet) 1 Each Tablet 300 Mg Oral As Needed Docusate Sodium (Colace) 100 Mg Cap 100 Mg Oral Twice A Day 30 Cap Enalapril Maleate (Vasotec) 10 Mg Tab 10 Mg Oral Daily Gabapentin 100 Mg Capsule 1 Tab Oral Bedtime Insulin Npl/Insulin Lispro (Humalog Mix 75-25 Kwikpen) 100 Unit/1 Ml Insuln.pen 20 Units Sub-Q Noon Insulin Npl/Insulin Lispro (Humalog Mix 75-25 Kwikpen) 100 Unit/1 Ml Insuln.pen 16 Units Sub-Q Bedtime Metformin Hcl 500 Mg Tablet 500 Mg Oral Twice A Day Nitrofurantoin Monohyd/M-Cryst (Macrobid 100 Mg Capsule) 100 Mg Capsule 100 Mg Oral Twice A Day 10 Days 03/21/17 Simvastatin 20 Mg Tablet 20 Mg Oral Bedtime Tramadol Hcl (Ultram) 50 Mg Tablet 50 Mg Oral Every 6 Hours Past Home Medications Medication Directions Ordered Status Cephalexin 500 Mg Capsule, 500 Mg Oral Daily Discontinued Fluconazole (Diflucan) 100 Mg Tablet, Mg Oral Daily as needed for Abdominal Pain Discontinued Insulin Npl/Insulin Lispro (Humalog Mix 75-25 Kwikpen) 100 Unit/1 Ml Insuln.pen , 16 Units Sub-Q Daily Discontinued Levofloxacin 250 Mg Tablet, 250 Mg Oral Twice A Day Discontinued Ondansetron (Zofran Odt) 4 Mg Tab.rapdis, 4 Mg Sublingual Every 4 Hours as needed for Nausea And Vomiting Discontinued Social History Social History Problem Response Recorded Date/Time Onset Date Status Hx Psychiatric Problems No 03/18/2017 1:17am Not Applicable Not Applicable Hx Eating Disorder No 03/18/2017 1:17am Not Applicable Not Applicable Hx Substance Use Disorder No 03/18/2017 1:17am Not Applicable Not Applicable Hx Depression No 03/18/2017 1:17am Not Applicable Not Applicable Hx Alcohol Use No 03/18/2017 1:17am Not Applicable Not Applicable Hx Substance Use Treatment No 03/18/2017 1:17am Not Applicable Not Applicable Hx Physical Abuse No 03/18/2017 1:17am Not Applicable Not Applicable Smoking Status Start Date Stop Date Never Smoker Hospital Discharge Instructions No hospital discharge instruction information available. Plan of Care Discharge Date 03/21/17 1:30pm Disposition HOME, SELF-CARE Instructions/Education Provided Back Pain Urinary Retention Prescriptions See Medication Section Referrals ISAURA COVARRUBIAS (Infectious Disease) Order Date: 1-2 Weeks Entered Date: 03/21/2017 11:40am Address: [address] [place] [id number] ISAURO SHEPPARD MD (Urology) Order Date: 1-2 Weeks Entered Date: 03/21/2017 11:41am Address: [address] [place] [address] Functional Status Query Response Date Recorded FUNCTIONAL STATUS ` March 20, 2017 9:14am Ambulation Ability Minimum Assistance March 18, 2017 1:23am Toileting Ability Independent March 21, 2017 5:31am Allergies, Adverse Reactions, Alerts No known allergies. Immunizations No immunization information available. Vital Signs Acute Vital Signs Vital Response Date/Time Temperature (Fahrenheit) 97.4 degrees F (97.6 - 99.5) 03/21/2017 12:30pm Pulse Pulse Rate (adult) 64 bpm (60 - 90) 03/21/2017 12:30pm Respiratory Rate 18 bpm (12 - 24) 03/21/2017 12:30pm Blood Pressure 130/58 mm Hg 03/21/2017 12:30pm Height 5 ft 3 in 03/18/2017 1:17am Weight 113.44 lb 03/20/2017 8:37am Body Mass Index 20.1 kg/m^2 03/20/2017 8:37am Results Laboratory Results Test Name Result Units Flags Reference Collection Date/Time Result Date/ Time Comments White Blood Count 8.91 x10e3/uL 4.8-10.8 03/21/2017 3:59am 03/21/2017 4 :08am Red Blood Count 3.96 x10e6/uL 3.6-5.1 03/21/2017 3:59am 03/21/2017 4: 08am Hemoglobin 12.6 g/dL 12.0-16.0 03/21/2017 3:59am 03/21/2017 4:08am Hematocrit 38.0 % 34.2-44.1 03/21/2017 3:59am 03/21/2017 4:08am Mean Corpuscular Volume 96.0 fL 81-99 03/21/2017 3:59am 03/21/2017 4: 08am Mean Corpuscular Hemoglobin 31.8 pg 28-32 03/21/2017 3:59am 03/21/2017 4:08am Mean Corpuscular Hemoglobin Concent 33.2 g/dL 31-35 03/21/2017 3:59am 03/21/2017 4:08am Red Cell Distribution Width 13.4 % 11.7-14.4 03/21/2017 3:59am 2017 4:08am Platelet Count 175 x10e3/uL 140-360 03/21/2017 3:59am 03/21/2017 4: 08am Neutrophils (%) (Auto) 66.3 % 38.7-80.0 03/21/2017 3:59am 03/21/2017 4: 08am Lymphocytes (%) (Auto) 24.9 % 18.0-39.1 03/21/2017 3:59am 03/21/2017 4: 08am Monocytes (%) (Auto) 6.4 % 4.4-11.3 03/21/2017 3:59am 03/21/2017 4: 08am Eosinophils (%) (Auto) 1.5 % 0.0-6.0 03/21/2017 3:59am 03/21/2017 4: 08am Basophils (%) (Auto) 0.6 % 0.0-1.0 03/21/2017 3:59am 03/21/2017 4:08am IM GRANULOCYTES % 0.3 % 0.0-1.0 03/21/2017 3:59am 03/21/2017 4:08am Neutrophils # (Auto) 5.9 2.1-6.9 03/21/2017 3:59am 03/21/2017 4:08am Lymphocytes # (Auto) 2.2 1.0-3.2 03/21/2017 3:59am 03/21/2017 4:08am Monocytes # (Auto) 0.6 0.2-0.8 03/21/2017 3:59am 03/21/2017 4:08am Eosinophils # (Auto) 0.1 0.0-0.4 03/21/2017 3:59am 03/21/2017 4:08am Basophils # (Auto) 0.1 0.0-0.1 03/21/2017 3:59am 03/21/2017 4:08am Absolute Immature Granulocyte (auto 0.03 x10e3/uL 0-0.1 03/21/2017 3: 59am 03/21/2017 4:08am Urine Color COLORLESS YELLOW 03/17/2017 9:18am 03/17/2017 10:45am Urine Clarity HAZY CLEAR 03/17/2017 9:18am 03/17/2017 10:45am Urine Specific [place] 1.015 1.010-1.025 03/17/2017 9:18am 2017 10:45am Urine pH 5 5 - 7 03/17/2017 9:18am 03/17/2017 10:45am Urine Leukocyte Esterase 1+ H NEGATIVE 03/17/2017 9:18am 03/17/2017 10 :45am Urine Nitrite NEGATIVE NEGATIVE 03/17/2017 9:18am 03/17/2017 10:45am Urine Protein NEGATIVE NEGATIVE 03/17/2017 9:18am 03/17/2017 10:45am Urine Glucose (UA) NEGATIVE NEGATIVE 03/17/2017 9:18am 03/17/2017 10: 45am Urine Ketones NEGATIVE NEGATIVE 03/17/2017 9:18am 03/17/2017 10:45am Urine Urobilinogen 0.2 mg/dL 0.2 - 1 03/17/2017 9:18am 03/17/2017 10: 45am Urine Bilirubin NEGATIVE NEGATIVE 03/17/2017 9:18am 03/17/2017 10: 45am Urine Blood 2+ H NEGATIVE 03/17/2017 9:18am 03/17/2017 10:45am Urine WBC 11-20 /HPF H 0-5 03/17/2017 9:18am 03/17/2017 10:53am Urine RBC 11-20 /HPF H 0-5 03/17/2017 9:18am 03/17/2017 10:53am Urine Bacteria FEW /HPF NONE 03/17/2017 9:18am 03/17/2017 10:53am Urine Epithelial Cells FEW /LPF NONE 03/17/2017 9:18am 03/17/2017 10: 53am Urine Transitional Epithelial Cells RARE H NONE 03/17/2017 9:18am 10:53am Sodium Level 138 mmol/L 136-145 03/21/2017 3:59am 03/21/2017 4:23am Potassium Level 3.9 mmol/L 3.5-5.1 03/21/2017 3:59am 03/21/2017 4:23am Chloride Level 106 mmol/L 98-107 03/21/2017 3:59am 03/21/2017 4:23am Carbon Dioxide Level 24 mmol/L -03/21/2017 3:59am 03/21/2017 4: 23am Anion Gap 11.9 mmol/L 8-16 03/21/2017 3:59am 03/21/2017 4:23am Blood Urea Nitrogen 19 mg/dL 7-03/21/2017 3:59am 03/21/2017 4:23am Creatinine 0.66 mg/dL 0.57-1.11 03/21/2017 3:59am 03/21/2017 4:23am BUN/Creatinine Ratio 29 H 6-25 03/21/2017 3:59am 03/21/2017 4:23am Estimat Glomerular Filtration Rate > 60 ML/MIN 60- 03/21/2017 3:59am 4:23am Ranges were taken from the National Kidney Disease Education Program and the National Kid[employer] Foundation literature. Reference ranges: 60 or greater: Normal 16-59 (for 3 consecutive months): Chronic kidney disease 15 or less: Kidney failure Glucose Level 161 mg/dL H 74-118 03/21/2017 3:59am 03/21/2017 4:23am Calcium Level 9.1 mg/dL 8.4-10.2 03/21/2017 3:59am 03/21/2017 4:23am Bedside Glucose 119 mg/dL 70-120 03/21/2017 12:23pm 03/21/2017 12:31pm Meter ID: [id number] Total Bilirubin < 0.3 mg/dL 0.2-1.2 03/17/2017 10:55am 03/17/2017 11: 53am Aspartate Amino Transf (AST/SGOT) 13 IU/L 5-34 03/17/2017 10:55am 03/17 11:53am Alanine Aminotransferase (ALT/SGPT) 11 IU/L 0-55 03/17/2017 10:55am 11:53am Total Protein 7.0 g/dL 6.5-8.1 03/17/2017 10:55am 03/17/2017 11:53am Albumin 3.4 g/dL L 3.5-5.0 03/17/2017 10:55am 03/17/2017 11:53am Globulin 3.6 g/dL H 2.3-3.5 03/17/2017 10:55am 03/17/2017 11:53am Albumin/Globulin Ratio 0.9 0.8-2.0 03/17/2017 10:55am 03/17/2017 11: 53am Alkaline Phosphatase 59 IU/L 40-150 03/17/2017 10:55am 03/17/2017 11: 53am B-Type Natriuretic Peptide 83.4 pg/mL 0-100 03/18/2017 5:53am 2017 6:53am Lipase 237 U/L H 8-78 03/17/2017 10:55am 03/17/2017 11:53am Thyroid Stimulating Hormone (TSH) 2.692 uIU/mL 0.350-4.940 03/18/2017 5: 53am 03/18/2017 7:12am Microbiology Results Procedure Source Organism/Result Collection Date/Time Result Date/Time Result Status Blood Culture Blood NO GROWTH AFTER 72 HOURS 10:55am 03/20/2017 11:07am Preliminary Urine Culture Urine,Clean Catch ESCHERICHIA COLI-ESBL 03/17/2017 9:18am 6:18am Final Procedures Procedure Status Date Provider(s) Cystoscopy with retrograde pyelography Completed 03/21/[address] of abdomen and pelvis without contrast Active 03/14/17 NATALY MIRANDA MD Encounters Encounter Location Arrival/Admit Date Discharge/Depart Date Attending Provider Discharged Inpatient [facility] 03/17/17 11:55am 1:30pm YANE WILLIAMSON MD Departed Emergency Room [facility] 03/14/17 12:40pm 03/14 6:31pm NATALY MIRANDA MD Registered Clinic [facility] 08/26/16 12:39pm ISAURO SHEPPARD MD
[2017-06-24] MEDS ORDERED: PANTOPRAZOLE 40 MG 10ML VIAL IV STA (22:03)
[2017-06-24] MEDS ORDERED: ONDANSETRON HCL 4 MG ORAL DISINTEGRATING TAB PO ONE (22:15)
[2017-06-24] MEDS ORDERED: ASPIRIN 81 MG CHEW TAB PO ONE (22:15)
[2017-06-24 22:17] LABS: BASOPHILS # (AUTO) 0.1 (0.0-0.1); BASOPHILS % 0.4 % (0.0-1.0); EOSINOPHILS % 0.2 % (0.0-6.0); HEMATOCRIT 36.8 % (34.2-44.1); HEMOGLOBIN 12.3 g/dL (12.0-16.0); LYMPHOCYTES # (AUTO) 1.5 (1.0-3.2); LYMPHOCYTES % 11.7 % (18.0-39.1); MEAN CORPUSCULAR HEMOGLOBIN 31.5 pg (28-32); MEAN CORPUSCULAR HGB CONC 33.4 g/dL (31-35); MEAN CORPUSCULAR VOLUME 94.4 fL (81-99); MONOCYTES # (AUTO) 0.5 (0.2-0.8); MONOCYTES % 4.2 % (4.4-11.3); NEUTROPHILS # (AUTO) 10.4 (2.1-6.9); NEUTROPHILS % 82.8 % (38.7-80.0); PLATELET COUNT 194 x10e3/uL (140-360); RED CELL DISTRIBUTION WIDTH 13.6 % (11.7-14.4)
[2017-06-24 22:35] LABS: ALANINE AMINOTRANSFERASE 10 IU/L (0-55); ALBUMIN 3.7 g/dL (3.5-5.0); ALBUMIN/GLOBULIN RATIO 0.9 (0.8-2.0); ALKALINE PHOSPHATASE 65 IU/L (40-150); AMYLASE 129 U/L (25-125); ANION GAP 13.1 mmol/L (8-16); BLOOD UREA NITROGEN 21 mg/dL (7-26); BUN/CREATININE RATIO 31 (6-25); CALCIUM 9.5 mg/dL (8.4-10.2); CARBON DIOXIDE 27 mmol/L (22-29); CHLORIDE 101 mmol/L (98-107); CREATINE KINASE 86 IU/L (29-168); CREATININE, SERUM 0.68 mg/dL (0.57-1.11); EST GLOMERULAR FILTRATION RATE > 60 ML/MIN (60-); GLUCOSE 160 mg/dL (74-118); LIPASE 14 U/L (8-78); POTASSIUM 4.1 mmol/L (3.5-5.1); SODIUM 137 mmol/L (136-145)
[2017-06-24 23:36] LABS: BILIRUBIN,URINE NEGATIVE (NEGATIVE); CLARITY,URINE CLOUDY (CLEAR); COLOR,URINE YELLOW (YELLOW); KETONES,URINE NEGATIVE (NEGATIVE); LEUKOCYTE ESTERASE ,URINE 1+ (NEGATIVE); NITRITE,URINE NEGATIVE (NEGATIVE); PROTEIN,URINE DIPSTICK 1+ (NEGATIVE); URINE UROBILINOGEN 0.2 mg/dL (0.2 - 1)
[2017-06-24 23:37] LABS: WBC,URINE (MAN) >50 /HPF (0-5)
[2017-06-24 23:39] LABS: BACTERIA,URINE FEW /HPF; EPITHELIAL CELLS,URINE RARE /LPF
[2017-06-24 23:40] LABS: YEAST,URINE RARE
[2017-06-24] MEDS ORDERED: SODIUM CHLORIDE 0.9% 50ML 50 ML ONE (23:57)
[2017-06-24] MEDS ORDERED: IOPAMIDOL 370 MG/ML 200 ML INFUS..BTL INJ ONE (23:57)
[2017-06-25] VITALS (8 sets, daily range): BP systolic 107–132; BP diastolic 44–77
--- NOTE | 2017-06-25 00:42 | Diagnostic Imaging Report ---
EXAMINATION: Head CT HISTORY: Headache, hypertension COMPARISON: None. TECHNIQUE: Multidetector axial images were obtained without contrast from the foramen magnum to the vertex . The images were reconstructed using brain and bone algorithms. Thin section brain images were reformatted into coronal and sagittal planes. Intravenous contrast: None. Motion/streaking artifact limits the evaluation of the skull base and posterior cranial fossa. FINDINGS: Parenchyma: 1. No abnormal densities. 2. No mass or hemorrhage. No CT evidence of acute territorial vascular insult. Extra-axial spaces:No abnormal density. No extra-axial fluid collections Brain volume: Normal for age. Ventricles: No hydrocephalus or displacement. Arteries: No density suggestive of thrombus. Dural sinuses: No abnormal density. Extra-axial spaces: No abnormal density. Foramen magnum: No mass, Chiari malformation, or basilar invagination. Sella: No obvious mass. Paranasal/mastoid sinuses: Imaged portions unremarkable. Skull/Scalp: No lytic or blastic lesions. No fractures. IMPRESSION: No intracranial abnormality, particularly no hemorrhage. Signed by: Dr. Ilene Auguste M.D. on 06/25/2017 12:38 AM
--- NOTE | 2017-06-25 00:56 | Diagnostic Imaging Report ---
CHEST SINGLE (PORTABLE), 06/25/2017 12:00 AM Technique: CHEST SINGLE (PORTABLE) Comparison: None available. Clinical history: Shortness of breath Findings: Prominent cardiac silhouette, accentuated by AP portable technique. Linear left lateral basilar scarring. No consolidation. Rounded radiopaque density over the medial right lower lobe, likely related to a protruding osteophyte in correlation with prior CT/food aide 06/25/2017. Impression: 1. Lines/Tubes: None 2. No acute abnormality. Signed by: Dr Jaimie Sherwood MD on 06/25/2017 12:53 AM
--- NOTE | 2017-06-25 01:06 | Diagnostic Imaging Report ---
EXAM: CT ABDOMEN/PELVIS W DATE: 06/25/2017 12:00 AM INDICATION: Headache, mild right abdominal pain COMPARISON: 04/25/2017, 06/17/2014 TECHNIQUE: The abdomen and pelvis were scanned using a multidetector helical scanner. Coronal and sagittal reformations were obtained. Routine protocol performed. IV Contrast: 100 ml Isovue 300/370 FINDINGS: LOWER THORAX: Linear bibasilar scarring. LIVER/BILIARY: No masses. No ductal dilatation. GALLBLADDER: Surgically absent SPLEEN: Unremarkable PANCREAS: Unremarkable ADRENALS: No nodules KIDNEYS: Right double-J ureteral stent remains in place. There is persistent moderate right pelvocaliectasis and right renal cortical thinning/scarring. Stable left pelviectasis versus extrarenal pelvis. GI TRACT: No evidence of obstruction. There is mild. Enteric fluid and mesenteric edema. Mucosal hyperenhancement with perhaps mild wall thickening. Normal appendix. 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 PERITONEUM/RETROPERITONEUM: Mild free fluid LYMPH NODES: No lymphadenopathy REPRODUCTIVE ORGANS/BLADDER: Unremarkable SOFT TISSUES: Unremarkable BONES: Multilevel degenerative changes. IMPRESSION: 1. Findings which can be seen with enteritis. 2. Stable right double-J ureteral stent with moderate pelvocaliectasis and renal cortical thinning/scarring. Signed by: Dr Jaimie Sherwood MD on 06/25/2017 1:03 AM
[2017-06-25] MEDS ORDERED: METRONIDAZOLE 500MG/NS 100ML 100 ML IV STA (02:11)
[2017-06-25] MEDS ORDERED: LEVOFLOXACIN 500MG/D5W 100ML 100 ML IV STA (02:11)
[2017-06-25] MEDS: SODIUM CHLORIDE 0.9% 1000ML 1,000 ML IV SCH ×2 (02:28→12:17)
[2017-06-25] MEDS ORDERED: LEVOFLOXACIN 500MG/D5W 100ML IV SCH ×2 (02:30→23:00)
[2017-06-25] MEDS ORDERED: ONDANSETRON HCL 4 MG ORAL DISINTEGRATING TAB PO PRN (02:30)
[2017-06-25] MEDS ORDERED: DEXTROSE 50% SYRINGE 50 ML IV PRN ×2 (02:30→09:30)
[2017-06-25] MEDS ORDERED: ACETAMINOPHEN 325 MG TAB PO PRN ×2 (02:30→09:15)
[2017-06-25] MEDS: METRONIDAZOLE 500MG/NS 100ML 100 ML IV SCH ×4 (05:17→23:34)
[2017-06-25] MEDS: INSULIN REGULAR, HUMAN 100 UNIT/1 ML 3ML VIAL SQ SCH ×2 (07:30→11:30)
[2017-06-25] MEDS ORDERED: ACETAMINOPHEN/CODEINE 300MG - 30MG TAB PO SCH (09:30)
[2017-06-25] MEDS ORDERED: HYDRALAZINE HCL 20 MG/ML VIAL IV PRN (09:30)
[2017-06-25 09:42] LABS: BASOPHILS % 0.4 % (0.0-1.0); EOSINOPHILS # (AUTO) 0.1 (0.0-0.4); EOSINOPHILS % 0.5 % (0.0-6.0); HEMATOCRIT 36.3 % (34.2-44.1); HEMOGLOBIN 12.3 g/dL (12.0-16.0); LYMPHOCYTES # (AUTO) 2.4 (1.0-3.2); LYMPHOCYTES % 25.9 % (18.0-39.1); MEAN CORPUSCULAR HEMOGLOBIN 31.9 pg (28-32); MEAN CORPUSCULAR HGB CONC 33.9 g/dL (31-35); MONOCYTES # (AUTO) 0.6 (0.2-0.8); MONOCYTES % 6.7 % (4.4-11.3); NEUTROPHILS # (AUTO) 6.1 (2.1-6.9); NEUTROPHILS % 66.1 % (38.7-80.0); PLATELET COUNT 185 x10e3/uL (140-360); RED BLOOD COUNT 3.86 x10e6/uL (3.6-5.1); RED CELL DISTRIBUTION WIDTH 13.8 % (11.7-14.4)
[2017-06-25] MEDS ORDERED: ACETAMINOPHEN/CODEINE 300MG - 30MG TAB PO PRN (09:45)
[2017-06-25 09:58] LABS: ANION GAP 11.5 mmol/L (8-16); BLOOD UREA NITROGEN 14 mg/dL (7-26); BUN/CREATININE RATIO 20 (6-25); CALCIUM 9.1 mg/dL (8.4-10.2); CARBON DIOXIDE 27 mmol/L (22-29); CHLORIDE 105 mmol/L (98-107); CREATININE, SERUM 0.69 mg/dL (0.57-1.11); EST GLOMERULAR FILTRATION RATE > 60 ML/MIN (60-); GLUCOSE 167 mg/dL (74-118); MAGNESIUM 1.7 MG/DL (1.3-2.1); POTASSIUM 4.5 mmol/L (3.5-5.1); SODIUM 139 mmol/L (136-145)
[2017-06-25] MEDS: INSULIN LISPRO 100 UNIT/1 ML 3ML VIAL SQ SCH ×3 (12:29→21:49)
[2017-06-25] MEDS: TRAMADOL HCL 50 MG TAB PO SCH ×4 (12:45→23:34)
[2017-06-25] MEDS ORDERED: FLUCONAZOLE 100 MG TAB PO NR (13:15)
[2017-06-25] MEDS: DOCUSATE SODIUM 100 MG CAP PO SCH (17:35)
[2017-06-25] MEDS: GABAPENTIN 100 MG CAP PO SCH (21:00)
[2017-06-25] MEDS: SIMVASTATIN 20 MG TAB PO SCH (21:48)
[2017-06-26] VITALS (8 sets, daily range): BP systolic 111–170; BP diastolic 55–72
[2017-06-26] MEDS: TRAMADOL HCL 50 MG TAB PO SCH ×4 (05:14→18:30)
[2017-06-26] MEDS: SODIUM CHLORIDE 0.9% 1000ML 1,000 ML IV SCH ×3 (05:14→18:13)
[2017-06-26] MEDS: METRONIDAZOLE 500MG/NS 100ML 100 ML IV SCH ×3 (05:14→17:55)
[2017-06-26 06:51] LABS: BASOPHILS % 0.4 % (0.0-1.0); EOSINOPHILS # (AUTO) 0.1 (0.0-0.4); EOSINOPHILS % 0.8 % (0.0-6.0); HEMOGLOBIN 10.4 g/dL (12.0-16.0); LYMPHOCYTES # (AUTO) 1.6 (1.0-3.2); LYMPHOCYTES % 20.4 % (18.0-39.1); MEAN CORPUSCULAR HEMOGLOBIN 31.1 pg (28-32); MEAN CORPUSCULAR HGB CONC 32.5 g/dL (31-35); MEAN CORPUSCULAR VOLUME 95.8 fL (81-99); MONOCYTES # (AUTO) 0.5 (0.2-0.8); MONOCYTES % 6.6 % (4.4-11.3); NEUTROPHILS # (AUTO) 5.5 (2.1-6.9); NEUTROPHILS % 71.3 % (38.7-80.0); PLATELET COUNT 169 x10e3/uL (140-360); RED BLOOD COUNT 3.34 x10e6/uL (3.6-5.1); RED CELL DISTRIBUTION WIDTH 13.7 % (11.7-14.4)
[2017-06-26 07:13] LABS: ALANINE AMINOTRANSFERASE 7 IU/L (0-55); ALBUMIN 2.9 g/dL (3.5-5.0); ALKALINE PHOSPHATASE 51 IU/L (40-150); BLOOD UREA NITROGEN 11 mg/dL (7-26); BUN/CREATININE RATIO 15 (6-25); CALCIUM 8.5 mg/dL (8.4-10.2); CARBON DIOXIDE 26 mmol/L (22-29); CHLORIDE 108 mmol/L (98-107); CREATININE, SERUM 0.71 mg/dL (0.57-1.11); EST GLOMERULAR FILTRATION RATE > 60 ML/MIN (60-); GLUCOSE 178 mg/dL (74-118); SODIUM 139 mmol/L (136-145)
[2017-06-26 07:43] LABS: MAGNESIUM 1.6 MG/DL (1.3-2.1)
[2017-06-26] MEDS: DOCUSATE SODIUM 100 MG CAP PO SCH (08:32)
[2017-06-26] MEDS: ENALAPRIL MALEATE 10 MG TAB PO SCH (08:32)
[2017-06-26] MEDS: FLUCONAZOLE 100 MG TAB PO SCH (08:32)
[2017-06-26] MEDS: INSULIN LISPRO 100 UNIT/1 ML 3ML VIAL SQ SCH ×4 (08:59→20:58)
[2017-06-26] MEDS ORDERED: BISACODYL 5 MG TAB EC PO ONE (17:45)
[2017-06-26] MEDS: SIMVASTATIN 20 MG TAB PO SCH (20:58)
[2017-06-26] MEDS: GABAPENTIN 100 MG CAP PO SCH (21:00)
[2017-06-26] MEDS ORDERED: LEVOFLOXACIN 250MG/D5W 50ML PREMIX BAG IV SCH (23:00)
[2017-06-27] VITALS: BP 118/55
[2017-06-27] MEDS: METRONIDAZOLE 500MG/NS 100ML 100 ML IV SCH ×3 (01:00→12:00)
[2017-06-27 04:00] VITALS: BP 136/62
[2017-06-27] MEDS: TRAMADOL HCL 50 MG TAB PO SCH ×3 (06:00→12:00)
[2017-06-27] MEDS ORDERED: IOPAMIDOL 610MG/1ML 300 MG/ML VIAL IV ONE (07:28)
[2017-06-27] MEDS ORDERED: BELLADONNA/OPIUM 60 MG SUPP PR ONE (07:28)
[2017-06-27] MEDS: INSULIN LISPRO 100 UNIT/1 ML 3ML VIAL SQ SCH ×3 (07:30→16:30)
[2017-06-27 07:43] LABS: BASOPHILS % 0.3 % (0.0-1.0); EOSINOPHILS # (AUTO) 0.1 (0.0-0.4); EOSINOPHILS % 0.7 % (0.0-6.0); HEMATOCRIT 33.1 % (34.2-44.1); LYMPHOCYTES % 29.2 % (18.0-39.1); MEAN CORPUSCULAR HEMOGLOBIN 31.3 pg (28-32); MEAN CORPUSCULAR HGB CONC 33.2 g/dL (31-35); MEAN CORPUSCULAR VOLUME 94.3 fL (81-99); MONOCYTES # (AUTO) 0.5 (0.2-0.8); MONOCYTES % 7.7 % (4.4-11.3); NEUTROPHILS # (AUTO) 4.3 (2.1-6.9); NEUTROPHILS % 61.8 % (38.7-80.0); PLATELET COUNT 161 x10e3/uL (140-360); RED BLOOD COUNT 3.51 x10e6/uL (3.6-5.1); RED CELL DISTRIBUTION WIDTH 13.5 % (11.7-14.4)
[2017-06-27 08:07] LABS: ANION GAP 10.8 mmol/L (8-16); BLOOD UREA NITROGEN 8 mg/dL (7-26); BUN/CREATININE RATIO 12 (6-25); CALCIUM 8.6 mg/dL (8.4-10.2); CARBON DIOXIDE 25 mmol/L (22-29); CHLORIDE 107 mmol/L (98-107); CREATININE, SERUM 0.66 mg/dL (0.57-1.11); EST GLOMERULAR FILTRATION RATE > 60 ML/MIN (60-); GLUCOSE 160 mg/dL (74-118); MAGNESIUM 1.5 MG/DL (1.3-2.1); POTASSIUM 3.8 mmol/L (3.5-5.1); SODIUM 139 mmol/L (136-145)
[2017-06-27 08:12] VITALS: BP 148/67
[2017-06-27] MEDS ORDERED: FENTANYL CITRATE/PF 100MCG/2 ML INJ ONE (08:47)
[2017-06-27] MEDS ORDERED: DOCUSATE SODIUM 100 MG CAP PO SCH (09:00)
[2017-06-27] MEDS: ENALAPRIL MALEATE 10 MG TAB PO SCH (09:51)
[2017-06-27] MEDS: FLUCONAZOLE 100 MG TAB PO SCH (09:51)
[2017-06-27 09:57] VITALS: BP 164/71
[2017-06-27] MEDS ORDERED: METRONIDAZOLE500 MG PO (12:18)
[2017-06-27] MEDS ORDERED: ZOFRAN ODT4 MG PO (12:18)
[2017-06-27] MEDS ORDERED: DIFLUCAN100 MG PO (12:18)
[2017-06-27] MEDS ORDERED: LEVAQUIN500 MG PO (12:27)
[2017-06-27 12:29] VITALS: BP 147/66
[2017-06-27] MEDS ORDERED: DOCUSATE SODIU100 MG PO (12:29)
[2017-06-27] MEDS ORDERED: CITRATE OF MAGNESIA 300ML BOTTLE PO NR (13:00)
[2017-06-27 16:09] VITALS: BP 132/62
[2017-06-27] MEDS ORDERED: ONDANSETRON HCL INJ 2 MG/ML VIAL ONE (18:29)
[2017-06-27] MEDS ORDERED: DEXAMETHASONE SOD PHOS INJ 4 MG/ML VIAL ONE (18:29)
[2017-06-27] MEDS ORDERED: PROPOFOL IV EMULSION 10 MG/ML 20 ML VIAL ONE (18:29)
[2017-06-27] MEDS ORDERED: LIDOCAINE HCL 2% LOCAL INJ 5 ML SDV VIAL INJ ONE (18:29)
[2017-06-27] MEDS ORDERED: SEVOFLURANE INHAL SOLN 250 ML PEN BTL ONE (18:29)
--- NOTE | 2017-06-28 07:47 | Discharge Summary ---
ADMISSION DIAGNOSES 1. Bacterial gastroenteritis/colitis. 2. Urinary tract infection. 3. Ureteral stent exchange. 4. Hypertension. 5. Hyperlipidemia. 6. Type 2 diabetes. DISCHARGE DIAGNOSES 1. Bacterial gastroenteritis/colitis. 2. Urinary tract infection. 3. Ureteral stent exchange. 4. Hypertension. 5. Hyperlipidemia. 6. Type 2 diabetes. HISTORY: Patient has a history of hypertension, diabetes, kidney stones, hyperlipidemia, arthritis. HOSPITAL COURSE: A 77-year-old female complains of vomiting that began around 7 p.m. the night before admission. She denies fever, diarrhea and dizziness. She also complains of urinary frequency and lower abdominal pain. She states that Dr. Bryant is her urologist, and she is scheduled to have her stent in her ureters exchanged. Upon admission, the patient was started on Levaquin and Flagyl, as well as Zofran and IV fluids. She had a chest x-ray that showed no acute abnormality. CT of the brain showed no intracranial abnormality. CT of the abdomen showed findings which can be seen with enteritis. The patient had a urine culture with negative bacillus and yeast. She was started on fluconazole. Flu swab was negative. The patient was started on home meds for hyperlipidemia, type 2 diabetes and hypertension. After having her stents exchanged, the patient was safe to discharge home. She was continued on her antibiotics plus fluconazole for 1 more day. She was also given Zofran in case the nausea returns. She will be discharged home with family. Follow up with Dr. Bryant and primary care in 2 weeks. The patient is afebrile. Labs within normal limits. The patient is ready to go home. DICTATED BY FUAD HUTCHINSON NP YANE WILLIAMSON MD Job#: [id number] [place]
== END 2017-06-27 17:22 | disposition home or self-care (01) | DRG 372 ==
LOC: ER 21:41 → ERHOLD 06-25 02:23 → IMCU 06-25 02:56 → MED/SURG 06-25 12:54
PROVIDERS: ADMIT Internal Medicine; ATTEND Internal Medicine
PROC: 0T768DZ Dilation of Right Ureter with Intraluminal Device, Via Natural or Artificial Opening Endoscopic (ICD-10-PCS; 2017-06-27)
PROC: 0TP98DZ Removal of Intraluminal Device from Ureter, Via Natural or Artificial Opening Endoscopic (ICD-10-PCS; principal; 2017-06-27 14:30)
DX: A04.9 Bacterial intestinal infection, unspecified (principal); B37.49 Other urogenital candidiasis; N13.1 Hydronephrosis with ureteral stricture, not elsewhere classified; I10 Essential (primary) hypertension; E78.5 Hyperlipidemia, unspecified; E11.9 Type 2 diabetes mellitus without complications; D64.9 Anemia, unspecified; M19.90 Unspecified osteoarthritis, unspecified site; K59.00 Constipation, unspecified; N95.2 Postmenopausal atrophic vaginitis; Z79.4 Long term (current) use of insulin
CPT/HCPCS: 36415; 70450; 71045; 74177; 74420; 80048; 80053; 81001; 82150; 82550; 82553; 82948; 83036; 83690; 83735; 84484; 85025; 87086; 87186; 87400; 93005; 96372; 96374; 99284; C2617; J1100; J1956; J2001; J2405; J7030; Q9967

== ENCOUNTER 2020-08-22 13:19 | Emergency (ER) | payer MEDICARE ==
[~2020-08-22] VITALS: Ht 160 cm; Wt 53.5 kg
[~2020-08-22 13:19] MED LIST changes: +DOCUSATE SODIU100 MG PO; +LEVAQUIN500 MG PO; +METRONIDAZOLE500 MG PO; +ZOFRAN ODT4 MG PO
[2020-08-22 13:52] LABS: BASOPHILS % 0.5 % (0.0-1.0); EOSINOPHILS # (AUTO) 0.2 (0.0-0.4); EOSINOPHILS % 1.8 % (0.0-6.0); HEMATOCRIT 35.4 % (34.2-44.1); HEMOGLOBIN 11.4 g/dL (12.0-16.0); LYMPHOCYTES # (AUTO) 2.9 (1.0-3.2); LYMPHOCYTES % 35.2 % (18.0-39.1); MEAN CORPUSCULAR HEMOGLOBIN 31.2 pg (28-32); MEAN CORPUSCULAR HGB CONC 32.2 g/dL (31-35); MONOCYTES # (AUTO) 0.5 (0.2-0.8); NEUTROPHILS # (AUTO) 4.6 (2.1-6.9); NEUTROPHILS % 56.1 % (38.7-80.0); PLATELET COUNT 260 x10e3/uL (140-360); RED BLOOD COUNT 3.65 x10e6/uL (3.6-5.1); RED CELL DISTRIBUTION WIDTH 13.4 % (11.7-14.4)
[2020-08-22 14:09] LABS: ALBUMIN 3.4 g/dL (3.5-5.0); CALCIUM 8.7 mg/dL (8.4-10.2); CREATININE, SERUM 0.68 mg/dL (0.57-1.11)
[2020-08-22 14:10] LABS: LIPASE 69 U/L (8-78)
[2020-08-22 15:26] LABS: CLARITY,URINE SL CLOUDY (CLEAR); COLOR,URINE YELLOW (YELLOW); LEUKOCYTE ESTERASE ,URINE SMALL (NEGATIVE); NITRITE,URINE NEGATIVE (NEGATIVE); PROTEIN,URINE DIPSTICK NEGATIVE (NEGATIVE)
[2020-08-22 15:27] LABS: KETONES,URINE NEGATIVE (NEGATIVE); URINE UROBILINOGEN 0.2 mg/dL (0.2 - 1)
[2020-08-22 15:39] LABS: BACTERIA,URINE MODERATE /HPF; EPITHELIAL CELLS,URINE MODERATE /LPF; RBC,URINE 0-5 /HPF (0-5); TRANSITIONAL EPI CELLS,URINE FEW
[2020-08-22] MEDS ORDERED: CEFUROXIME250 MG PO (15:49)
[2020-08-22] MEDS ORDERED: DIFLUCAN100 MG PO (15:49)
[2020-08-22 16:30] VITALS: BP 135/46
== END 2020-08-22 16:37 | disposition home or self-care (01) ==
LOC: ER 14:40
DX: N39.0 Urinary tract infection, site not specified (principal); N13.30 Unspecified hydronephrosis; I10 Essential (primary) hypertension; E78.00 Pure hypercholesterolemia, unspecified; E11.40 Type 2 diabetes mellitus with diabetic neuropathy, unspecified; Z79.4 Long term (current) use of insulin; Z87.442 Personal history of urinary calculi; Z96.0 Presence of urogenital implants; Z79.899 Other long term (current) drug therapy
CPT/HCPCS: 36415; 74176; 80053; 81001; 83690; 84484; 85025; 87086; 87186; 93005; 99284

== ENCOUNTER → 2020-11-24 | Outpatient (CLI) | payer MEDICARE ==
[~2020-11-24] MED LIST changes: +CEFUROXIME250 MG PO; +FUROSEMIDE INJ 10 MG/ML 4 ML VIAL ONE
== END ==
LOC: NM 09:14
PROVIDERS: ATTEND Urology
DX: N13.5 Crossing vessel and stricture of ureter without hydronephrosis (principal)
CPT/HCPCS: 78708; A9562; J1940

== ENCOUNTER 2021-10-29 08:20 | Inpatient (IN) | payer MEDICARE ==
[~2021-10-29] VITALS: Ht 160 cm; Wt 53.5 kg
[~2021-10-29 08:20] MED LIST changes: -FUROSEMIDE INJ 10 MG/ML 4 ML VIAL ONE
[2021-10-29] MEDS ORDERED: SODIUM CHLORIDE 0.9% 1000ML 1,000 ML IV STA (08:24)
[2021-10-29] MEDS ORDERED: ACETAMINOPHEN 325 MG TAB PO STA (08:34)
[2021-10-29 08:47] LABS: BASOPHILS % 0.2 % (0.0-1.0); HEMATOCRIT 34.4 % (34.2-44.1); HEMOGLOBIN 11.8 g/dL (12.0-16.0); LYMPHOCYTES # (AUTO) 0.8 (1.0-3.2); LYMPHOCYTES % 4.7 % (18.0-39.1); MEAN CORPUSCULAR HGB CONC 34.3 g/dL (31-35); MEAN CORPUSCULAR VOLUME 93.2 fL (81-99); MONOCYTES # (AUTO) 0.8 (0.2-0.8); MONOCYTES % 4.9 % (4.4-11.3); NEUTROPHILS # (AUTO) 14.4 (2.1-6.9); NEUTROPHILS % 89.4 % (38.7-80.0); PLATELET COUNT 140 x10e3/uL (140-360); RED BLOOD COUNT 3.69 x10e6/uL (3.6-5.1); RED CELL DISTRIBUTION WIDTH 13.7 % (11.7-14.4)
[2021-10-29 09:10] LABS: ALBUMIN 3.4 g/dL (3.5-5.0); ALBUMIN/GLOBULIN RATIO 0.9 (0.8-2.0); ANION GAP 15.9 mmol/L (8-16); CREATININE, SERUM 0.81 mg/dL (0.57-1.11); POTASSIUM 3.9 mmol/L (3.5-5.1)
[2021-10-29 09:42] LABS: CLARITY,URINE CLEAR (CLEAR); COLOR,URINE YELLOW (YELLOW)
[2021-10-29 09:43] LABS: KETONES,URINE NEGATIVE (NEGATIVE); LEUKOCYTE ESTERASE ,URINE NEGATIVE (NEGATIVE); NITRITE,URINE NEGATIVE (NEGATIVE); PROTEIN,URINE DIPSTICK NEGATIVE (NEGATIVE); URINE UROBILINOGEN 0.2 mg/dL (0.2 - 1)
[2021-10-29 10:11] LABS: BACTERIA,URINE FEW /HPF; EPITHELIAL CELLS,URINE FEW /LPF; RBC,URINE 0-5 /HPF (0-5)
[2021-10-29] MEDS ORDERED: ONDANSETRON HCL INJ 2MG/ML 2ML 2 MG/ML VIAL IV PRN (12:15)
[2021-10-29] MEDS ORDERED: Morphine 4mg INJECTION 4 MG/ML INJ IV PRN (12:15)
[2021-10-29] MEDS: SODIUM CHLORIDE 0.9% 1000ML 1,000 ML IV SCH ×2 (13:08→21:07)
[2021-10-29 20:27] VITALS: BP 130/83
[2021-10-29 20:58] VITALS: BP 138/50
[2021-10-29] MEDS ORDERED: LOPRESSOR25 MG PO (20:58)
[2021-10-29] MEDS ORDERED: ULTRAM 50MG50 MG PO (20:58)
[2021-10-29 21:00] VITALS: BP 138/50
[2021-10-30] VITALS (7 sets, daily range): BP systolic 112–163; BP diastolic 53–64
[2021-10-30] MEDS: SODIUM CHLORIDE 0.9% 1000ML 1,000 ML IV SCH ×3 (04:36→21:15)
[2021-10-30 05:52] LABS: BASOPHILS % 0.5 % (0.0-1.0); EOSINOPHILS % 0.3 % (0.0-6.0); HEMATOCRIT 31.4 % (34.2-44.1); HEMOGLOBIN 10.4 g/dL (12.0-16.0); LYMPHOCYTES # (AUTO) 1.7 (1.0-3.2); LYMPHOCYTES % 21.7 % (18.0-39.1); MEAN CORPUSCULAR HGB CONC 33.1 g/dL (31-35); MEAN CORPUSCULAR VOLUME 96.6 fL (81-99); MONOCYTES # (AUTO) 0.4 (0.2-0.8); MONOCYTES % 5.7 % (4.4-11.3); NEUTROPHILS # (AUTO) 5.5 (2.1-6.9); NEUTROPHILS % 71.4 % (38.7-80.0); PLATELET COUNT 117 x10e3/uL (140-360); RED BLOOD COUNT 3.25 x10e6/uL (3.6-5.1); RED CELL DISTRIBUTION WIDTH 14.1 % (11.7-14.4)
[2021-10-30 06:13] LABS: ALBUMIN 2.6 g/dL (3.5-5.0); ALBUMIN/GLOBULIN RATIO 0.8 (0.8-2.0); ANION GAP 10.8 mmol/L (8-16); CALCIUM 7.7 mg/dL (8.4-10.2); CREATININE, SERUM 0.63 mg/dL (0.57-1.11); POTASSIUM 3.8 mmol/L (3.5-5.1)
[2021-10-30] MEDS ORDERED: TRAMADOL HCL 50 MG TAB PO PRN (07:00)
[2021-10-30] MEDS ORDERED: ACETAMINOPHEN 325 MG TAB PO PRN (07:00)
[2021-10-30] MEDS ORDERED: HYDRALAZINE HCL 20 MG/ML VIAL IV PRN (07:00)
[2021-10-30] MEDS ORDERED: ONDANSETRON HCL 4 MG ORAL DISINTEGRATING TAB PO PRN (07:00)
[2021-10-30] MEDS ORDERED: ACETAMINOPHEN/CODEINE 300MG - 30MG TAB PO PRN (07:00)
[2021-10-30] MEDS ORDERED: POLYETHYLENE GLYCOL 3350 17 GM PACK PO PRN (07:00)
[2021-10-30] MEDS: FAMOTIDINE 20 MG TAB PO SCH ×2 (10:55→18:02)
[2021-10-30] MEDS: DOCUSATE SODIUM 100 MG CAP PO SCH ×2 (10:55→18:02)
[2021-10-30] MEDS: METFORMIN HCL 500 MG TAB PO SCH ×2 (10:55→18:02)
[2021-10-30] MEDS: METOPROLOL TARTRATE 25 MG TAB PO SCH ×2 (10:55→17:00)
[2021-10-30] MEDS: ENALAPRIL MALEATE 10 MG TAB PO SCH (10:56)
[2021-10-30] MEDS: SIMVASTATIN 20 MG TAB PO SCH (21:14)
[2021-10-31] VITALS (8 sets, daily range): BP systolic 135–163; BP diastolic 52–58
[2021-10-31] MEDS: SODIUM CHLORIDE 0.9% 1000ML 1,000 ML IV SCH (05:20)
[2021-10-31 05:35] LABS: BASOPHILS % 0.5 % (0.0-1.0); EOSINOPHILS % 0.3 % (0.0-6.0); HEMATOCRIT 32.1 % (34.2-44.1); HEMOGLOBIN 10.8 g/dL (12.0-16.0); LYMPHOCYTES # (AUTO) 1.9 (1.0-3.2); LYMPHOCYTES % 24.5 % (18.0-39.1); MEAN CORPUSCULAR HEMOGLOBIN 31.9 pg (28-32); MEAN CORPUSCULAR HGB CONC 33.6 g/dL (31-35); MEAN CORPUSCULAR VOLUME 94.7 fL (81-99); MONOCYTES # (AUTO) 0.6 (0.2-0.8); MONOCYTES % 8.2 % (4.4-11.3); NEUTROPHILS # (AUTO) 5.1 (2.1-6.9); NEUTROPHILS % 65.8 % (38.7-80.0); PLATELET COUNT 142 x10e3/uL (140-360); RED BLOOD COUNT 3.39 x10e6/uL (3.6-5.1); RED CELL DISTRIBUTION WIDTH 13.4 % (11.7-14.4)
[2021-10-31 05:57] LABS: ALBUMIN 2.6 g/dL (3.5-5.0); ALBUMIN/GLOBULIN RATIO 0.7 (0.8-2.0); ANION GAP 12.5 mmol/L (8-16); CHOL/HDL RATIO 4.6 (3.0-3.6); CREATININE, SERUM 0.64 mg/dL (0.57-1.11); MAGNESIUM 1.6 MG/DL (1.3-2.1); PHOSPHORUS 2.2 MG/DL (2.3-4.7); POTASSIUM 3.5 mmol/L (3.5-5.1)
[2021-10-31 06:18] LABS: THYROID STIMULATING HORMONE 4.054 uIU/mL (0.350-4.940)
[2021-10-31] MEDS: DOCUSATE SODIUM 100 MG CAP PO SCH ×2 (09:00→16:16)
[2021-10-31] MEDS: FAMOTIDINE 20 MG TAB PO SCH ×2 (09:01→16:16)
[2021-10-31] MEDS: METFORMIN HCL 500 MG TAB PO SCH ×2 (09:01→16:15)
[2021-10-31] MEDS: ENALAPRIL MALEATE 10 MG TAB PO SCH (09:02)
[2021-10-31] MEDS: METOPROLOL TARTRATE 25 MG TAB PO SCH ×2 (09:02→16:16)
[2021-10-31] MEDS ORDERED: INSULIN LISPRO SQ SCH ×2 (14:15→21:00)
[2021-10-31] MEDS ORDERED: INSULIN LISPRO PROTAMINE SQ SCH ×2 (14:15→21:00)
[2021-10-31] MEDS ORDERED: [UNRECOGNIZED DRUG - OTHER] SQ SCH (14:15)
[2021-10-31] MEDS ORDERED: DEXTROSE 50% SYRINGE 50 ML IV PRN (14:15)
[2021-10-31] MEDS: INSULIN LISPRO 100 UNIT/1 ML 3ML VIAL SQ SCH (16:30)
[2021-10-31] MEDS: INS LISP PRO/LISP HUMAN 75/25 100 UNITS/ML VIAL SC SCH (17:00)
[2021-10-31] MEDS ORDERED: [UNRECOGNIZED DRUG - OTHER] SQ SCH (21:00)
[2021-10-31] MEDS: SIMVASTATIN 20 MG TAB PO SCH (21:14)
[2021-11-01] VITALS: BP 125/52
[2021-11-01 04:00] VITALS: BP 134/58
[2021-11-01 05:46] LABS: BASOPHILS # (AUTO) 0.1 (0.0-0.1); BASOPHILS % 0.5 % (0.0-1.0); EOSINOPHILS % 0.2 % (0.0-6.0); LYMPHOCYTES # (AUTO) 2.2 (1.0-3.2); LYMPHOCYTES % 21.9 % (18.0-39.1); MEAN CORPUSCULAR HEMOGLOBIN 31.9 pg (28-32); MEAN CORPUSCULAR HGB CONC 32.4 g/dL (31-35); MEAN CORPUSCULAR VOLUME 98.4 fL (81-99); MONOCYTES # (AUTO) 0.6 (0.2-0.8); NEUTROPHILS # (AUTO) 6.9 (2.1-6.9); NEUTROPHILS % 70.5 % (38.7-80.0); PLATELET COUNT 163 x10e3/uL (140-360); RED BLOOD COUNT 3.76 x10e6/uL (3.6-5.1); RED CELL DISTRIBUTION WIDTH 13.4 % (11.7-14.4)
[2021-11-01 06:14] LABS: ANION GAP 14.7 mmol/L (8-16); CREATININE, SERUM 0.64 mg/dL (0.57-1.11); POTASSIUM 3.7 mmol/L (3.5-5.1)
[2021-11-01] MEDS: INSULIN LISPRO 100 UNIT/1 ML 3ML VIAL SQ SCH ×2 (06:26→07:30)
[2021-11-01 06:58] VITALS: BP 125/52
[2021-11-01] MEDS: INS LISP PRO/LISP HUMAN 75/25 100 UNITS/ML VIAL SC SCH (07:30)
[2021-11-01 08:00] VITALS: BP 125/52
[2021-11-01 08:38] VITALS: BP 156/57
[2021-11-01] MEDS: METFORMIN HCL 500 MG TAB PO SCH (08:55)
[2021-11-01] MEDS: METOPROLOL TARTRATE 25 MG TAB PO SCH (08:55)
[2021-11-01] MEDS: ENALAPRIL MALEATE 10 MG TAB PO SCH (08:55)
[2021-11-01] MEDS: DOCUSATE SODIUM 100 MG CAP PO SCH (08:55)
[2021-11-01] MEDS: FAMOTIDINE 20 MG TAB PO SCH (08:56)
[2021-11-01 11:45] VITALS: BP 130/50
[2021-11-01] MEDS ORDERED: CEFUROXIME250 MG PO (11:56)
== END 2021-11-01 13:36 | disposition home or self-care (01) | DRG 698 ==
LOC: ER 08:34 → ERHOLD 12:10 → MED/SURG2 20:15 → OBSVTOIN 10-30 09:08
PROVIDERS: ADMIT Internal Medicine; ATTEND Internal Medicine
DX: T83.592A Infection and inflammatory reaction due to indwelling ureteral stent, initial encounter (principal); A41.51 Sepsis due to Escherichia coli [E. coli]; Z16.12 Extended spectrum beta lactamase (ESBL) resistance; N13.6 Pyonephrosis; Z16.24 Resistance to multiple antibiotics; Y73.2 Prosthetic and other implants, materials and accessory gastroenterology and urology devices associated with adverse incidents; I10 Essential (primary) hypertension; F03.90 Unspecified dementia, unspecified severity, without behavioral disturbance, psychotic disturbance, mood disturbance, and anxiety; E11.51 Type 2 diabetes mellitus with diabetic peripheral angiopathy without gangrene; Z79.899 Other long term (current) drug therapy; E11.40 Type 2 diabetes mellitus with diabetic neuropathy, unspecified; Z79.4 Long term (current) use of insulin; B96.20 Unspecified Escherichia coli [E. coli] as the cause of diseases classified elsewhere; N20.0 Calculus of kidney; I70.208 Unspecified atherosclerosis of native arteries of extremities, other extremity; N39.41 Urge incontinence; N81.10 Cystocele, unspecified; N32.81 Overactive bladder; E11.65 Type 2 diabetes mellitus with hyperglycemia; R35.1 Nocturia; Z20.822 Contact with and (suspected) exposure to COVID-19
CPT/HCPCS: 0223U; 36415; 71045; 74176; 80048; 80053; 80061; 81001; 82948; 83036; 83605; 83735; 84100; 84443; 84550; 85025; 87040; 87086; 99284; G0378; J1815; J2185; J2543; J7030

== ENCOUNTER 2024-07-28 12:26 | Emergency (ER) | payer MEDICARE ==
[~2024-07-28] VITALS: Ht 160 cm; Wt 53.5 kg
[~2024-07-28 12:26] MED LIST changes: +LOPRESSOR25 MG PO; +ULTRAM 50MG50 MG PO
[2024-07-28 12:45] VITALS: PULSE 65; RESP 18; TEMP 98.8; O2SAT 99
== END 2024-07-28 14:42 | disposition home or self-care (01) ==
LOC: ER 12:35
DX: Z98.890 Other specified postprocedural states (principal); R33.9 Retention of urine, unspecified; I10 Essential (primary) hypertension; E11.9 Type 2 diabetes mellitus without complications; E78.00 Pure hypercholesterolemia, unspecified
CPT/HCPCS: 51700; 87086; 99282

== ENCOUNTER → 2024-09-17 | Outpatient (REF) | payer MEDICARE | LOC: US 14:33 | PROVIDERS: ATTEND Urology | DX: N13.30 Unspecified hydronephrosis (principal) | CPT/HCPCS: 76770; 76857 ==